=== PATIENT | female | born 1950 | race Caucasian/White ===

== ENCOUNTER → 2019-03-02 | Outpatient (CLI) | payer MEDICARE, OTHER | LOC: M.MRI 14:07 | DX: S83.241A Other tear of medial meniscus, current injury, right knee, initial encounter (principal); M17.11 Unilateral primary osteoarthritis, right knee; M25.461 Effusion, right knee; M25.761 Osteophyte, right knee; X58.XXXA Exposure to other specified factors, initial encounter; Y93.89 Activity, other specified; Y92.89 Other specified places as the place of occurrence of the external cause; Y99.8 Other external cause status ==

== ENCOUNTER 2019-04-03 06:56 | Inpatient (IN) | payer MEDICARE, OTHER ==
[~2019-04-03] VITALS: Ht 170.2 cm; Wt 73.9 kg
--- NOTE | ~2019-04-03 | OP ---
[facility] [address] [place] [address] OPERATIVE REPORT Name: WILLIAM VILLALPANDO Room: [address] IN M.R.#: [id number] Admission: 04/03/19 Attend Phys: Isauro Victoria Discharge: Date of : 48 Report #: [id number] THIS REPORT FOR: //name// CC: Arash Panda DATE OF SERVICE: 04/03/2019 PREOPERATIVE DIAGNOSIS: Right knee osteoarthritis. POSTOPERATIVE DIAGNOSIS: Right knee osteoarthritis. PROCEDURE: Right total knee arthroplasty. SURGEON: Arash Lackey II, DO AMMUNITION SUPERVISOR: IAN Dunham ANESTHESIA: General endotracheal. ESTIMATED BLOOD LOSS: 50 mL. ANTIBIOTICS: Ancef preoperatively. DRAINS: Medium Hemovac. COMPLICATIONS: None. CONDITION: The patient is stable to recovery room. IMPLANTS: Listed in the operative record and progress note. BRIEF HISTORY: The patient was seen in the preoperative area. Preoperative H and P was performed. Site was marked, questions were answered. Risks and benefits were discussed with the patient in detail about surgery. The patient wished to proceed assuming all risks. OPERATIVE PROCEDURE: The patient was taken to the operative suite and placed supine on the operating table and given appropriate anesthesia. A well-padded tourniquet was applied to the upper thigh, which was inflated to 300 mmHg after gravity exsanguination. The operative knee was sterilely prepped and draped. Surgery began by midline incision. This was carried down to the subcutaneous tissues. A medial parapatellar arthrotomy was performed and carried down to the bone. The patella was everted and excess soft tissues were removed from around the femur. Femoral cutting block was then applied, checked with a drop eleanor for [address] [address] OPERATIVE REPORT Name: WILLIAM VILLALPANDO Room: [address] IN [facility]#: [id number] Admission: 04/03/19 Attend Phys: Isauro Victoria Discharge: Date of : 48 Report #: [id number] rotational alignment, pinned in appropriate position and appropriate cuts were made. A 4-in-1 cutting block was then applied, checked for rotational alignment, pinned into appropriate position and appropriate cuts were made. The tibia was then exposed. Excess meniscus was removed. Retractor was placed along the collateral ligaments. The tibial cutting block was then applied in the appropriate position, checked with a drop eleanor for rotational alignment and slope and appropriate cut was made. The tibial bone was removed. Tibial base plate was then applied, checked for rotational alignment with the drop eleanor and pinned into appropriate position. The femur was then applied and box cut was reamed. This was then trialed with the appropriate spacer, which showed excellent fit and fill and excellent stability of the knee throughout all range of motion. The patella was reamed in appropriate fashion and sized to appropriate size. Three peg holes were drilled and it was then trialed and showed excellent flexion and extension and excellent tracking of the patella from the groove. These trials were then removed. The tibia was punched in appropriate fashion. Bone ends were cleaned with Pulsavac irrigation. Cement was mixed and applied to the final implants. These were then malleted into position and held the knee in extension and compressed to allow cement to cure. After it cured, excess cement was removed using a [place] and osteotome. The wound was then copiously irrigated and the final spacer was malleted into position. Tourniquet was deflated. Hemostasis was obtained with electrocautery. Pain cocktail was injected. PRP gel was sprayed throughout the internal aspects of the knee. Medium Hemovac drain was applied. Capsule was closed with 2 FiberWire and 1 Vicryl in a [id number] fashion. Skin was closed with 2-0 Vicryl and running 3-0 Monocryl. Dermabond and sterile dressing were applied. Xavier wrap and PolarCare were applied. The patient was transported to the recovery room in stable condition. Counts were correct throughout the procedure. By: [id number] Elizabeth Lackey II, DO /nt
[~2019-04-03 06:56] MED LIST: ASPIR 8181 M1 PO; BIOTIN5 MG PO; CALCITRATE200 MG PO; GLUCOSAMINE-CH1 EAC3 PO; MULTIVITAMINS1 EAC7 PO; OMEPRAZOLE 20 M20 M1 PO; PROBIOTIC1 EAC1 PO; SERTRALINE HCL50 MG PO; TOPROL XL25 MG PO; VITAMIN D2000 UNIT PO; XALATAN2.5 ML OPHTHALMIC
[2019-04-03 09:21] VITALS: BP 141/48
[2019-04-03 15:55] VITALS: BP 122/72
--- NOTE | 2019-04-03 17:01 | NUR ---
PT REMAINED ALERT AND ORIENTED. PT GIVEN PAIN MEDS ORDERED. PT HAS NOT YET VOIDED AT THIS TIME. PT HAS HX OF VASOVAGAL AND WILL NEED X2 ASSIST TO COMMODE. FALL RISK PRECAUTIONS IN PLACE. HOURLY ROUNDING COMPLETED. WILL CONTINUE TO MONITOR.
[2019-04-03 20:00] VITALS: BP 122/69
[2019-04-04] VITALS: BP 117/49
[2019-04-04 03:52] VITALS: BP 99/47
[2019-04-04 04:12] LABS: HEMATOCRIT 35.3 % (37.0-47.0)
[2019-04-04 04:34] LABS: CALCIUM 8.5 mg/dL (8.5-10.1); CREATININE 0.7 mg/dL (0.6-1.3); MAGNESIUM 1.7 mg/dL (1.8-2.4); POTASSIUM 4.2 mmol/L (3.5-5.1)
--- NOTE | 2019-04-04 05:52 | NUR ---
PT REMAINED ALERT AND ORIENTED. VITALS, SpO2 STABLE. PT ON 2L OF OXYGEN BY NC. IV ANTIBIOTICS GIVEN ORDERED. PAIN CONTROLLED WITH OXY IR. RT KNEE INCISION/DRESSING CLEAN AND DRY. HEMO VAC IN PLACE WITH SEROSANGUINEOUS DRAINAGE. PT UP TO THE BEDSIDE COMODE WITH WALKER AND GAIT BELT. HOURLY ROUNDING COMPLETED. WILL CONTINUE TO MONITOR.
--- NOTE | 2019-04-04 06:30 | NUR ---
HEMOVAC DRAIN DISCONTINUED PER ORDER.
[2019-04-04 07:40] VITALS: BP 102/50
--- NOTE | 2019-04-04 07:52 | NUR ---
EMESIS EARLY AM AFTER BEING UP TO BEDSIDE COMMODE. DARRELL PEACE.
--- NOTE | 2019-04-04 12:51 | NUR ---
RECIEVED O.T. EVAL AND TX ORDERS. WILL DEFER TO P.T. AT THIS TIME. PLEASE ORDER FURTHER O.T. SERVICES IF NEEDED.
--- NOTE | 2019-04-04 14:45 | NUR ---
PT.IN CPM. SHAKING. SHE SAID HER KNEE HURTS SO BAD. RN SAID TOO EARLY FOR ANY OTHER PAIN MED. TOLD HER IF SHE COULD NOT TOLERATE CPM,NURSING COULD TAKE HER OUT OF IT. SHE SAID SHE WOULD TRY IT A LITTLE LONGER. ENCOURAGED DEEP BREAHTING. SHE SAID SHE LIVES WITH HER AND IS USUALLY INDEPENDENT. HE WILL BE WITH HER AT HOME. SHE ALSO HAS 3 DAUGHTERS. THEY WILL BE TAKING TURNS STAYING WITH HER. THE DAUGHTER THATS THE RN WILL BE STAYING TOMORROW NIGHT AND TUESDAY. SHE HAS A FRONT WHEEL WALKER IN ROOM FROM HOME. DISCUSSED CPM AND POLAR JESUS. CM CALLED IN PRESCRIPTION FOR XARELTO, WRITTEN, TO HER PHARMACY. WILL CHECK IN AM FOR COPAY. SHE CHOSE [facility] . FAXED REFERRAL TO [facility] . [employer] [phone]/ FAX [phone].
[2019-04-04 16:40] VITALS: BP 102/50
--- NOTE | 2019-04-04 17:04 | NUR ---
ASSUMED CARE OF PATIENT AT APPROX 0730. ASSESSMENT COMPLETED AND CHARTED. VSS ON ROOM AIR. PAIN HAS BEEN MANAGED WITH OXY IR, HYDROCODONE, AND IV TORADOL. PATIENT HAS HAD COMPLAINTS OF NAUSEA, MANAGED WITH IV ZOFRAN AND PROMETHAZINE. PATIENT FEELING DIZZY AND SHAKY TODAY, LIKELY RELATED TO NAUSEA AND PAIN CONTROL ISSUES. PATIENT RESTING IN BED AT THIS TIME. UP WITH THERAPIES TODAY AND PROGRESSED TOWARD GOALS. FALL PRECAUTIONS IN PLACE. CALL LIGHT WITHIN REACH. HOURLY ROUNDS COMPLETED. NURSING WILL CONTINUE TO MONITOR.
[2019-04-04 21:20] VITALS: BP 103/60
[2019-04-05 04:10] VITALS: BP 131/57
[2019-04-05 04:39] LABS: HEMATOCRIT 35.6 % (37.0-47.0); HEMOGLOBIN 11.9 gm/dL (12.0-15.0); MCH 30.1 pg (26.0-34.0); MCHC 33.5 g/dL (28.0-37.0); MCV 89.8 fL (80.0-100.0); MPV 8.8 fl. (7.2-11.1); RBC 3.97 mil/uL (4.20-5.00); RDW-CV 13.3 % (10.5-14.5); WBC 9.6 thou/uL (4.0-11.0)
--- NOTE | 2019-04-05 04:39 | NUR ---
PT REMAINED ALERT, ORIENTED. SpO2 WAS 85% RA AT 2120, O2 APPLIED BY NC 2L/MIN, 97% ON RECHECK. PAIN CONTROLLED WITH TORADOL AND OXY IR. UP TO THE BATHROOM WITH MINIMUM ASSIST WITH WALKET AND GAIT BELT. PT STATED NAUSEA AFTER USING THE BATHROOM THIS MORNING. RESOLVED WHEN SHE RETURN TO BED WITHOUT FURTHER INTERVENTION. WILL CONTINUE TO MONITOR.
[2019-04-05 04:52] LABS: CALCIUM 8.7 mg/dL (8.5-10.1); CREATININE 0.8 mg/dL (0.6-1.3); MAGNESIUM 2.3 mg/dL (1.8-2.4); POTASSIUM 3.9 mmol/L (3.5-5.1)
[2019-04-05 07:40] VITALS: BP 107/60
[2019-04-05] MEDS ORDERED: PERCOCET PO (09:15)
[2019-04-05] MEDS ORDERED: XARELTO10 MG PO (09:15)
--- NOTE | 2019-04-05 10:00 | NUR ---
COPAY FOR ZAHIDA IS $190. PT.SAID SHE CANNOT AFFORD THIS. COUPON WE HAVE IS NOT FOR MEDICARE PART D. PTS. NURSING INFORMED. SHE WILL CALL . FAXED DISCHARGE ORDERS TO [facility]. THEY WILL CALL HER TOMORROW TO SET UP APPTS.
[2019-04-05] MEDS ORDERED: ASPIRIN325 PO (10:30)
--- NOTE | 2019-04-05 15:11 | NUR ---
ASSUMED CARE OF PATIENT AT APPROX 0730. ALERT AND ORIENTED X4. ASSESSMENT COMPLETED AND CHARTED. VSS ON ROOM AIR. PAIN MANAGED WITH TORADOL AND OXY IR. NO COMPLAINTS OF NAUSEA TODAY. PATIENT WORKED WELL WITH THERAPIES AND PROGRESSED TOWARD GOALS. PATIENT DISCHARGED AT 1442 WITH ALL PERSONAL BELONGINGS, PRESCRIPTIONS AND DISCHARGE INFORMATION.
== END 2019-04-05 14:42 | disposition home health service (06) | DRG 470 ==
LOC: M.PRE 06:56 → M.TBA 08:34 → M.ORTHSURG 08:34 → M.PRE 13:17 → M.ORTHSURG 15:14
PROVIDERS: Internal Medicine; Orthopaedic Surgery; ADMIT Internal Medicine
PROC: 0SRC069 Replacement of Right Knee Joint with Oxidized Zirconium on Polyethylene Synthetic Substitute, Cemented, Open Approach (ICD-10-PCS; principal; 2019-04-03)
DX: M17.11 Unilateral primary osteoarthritis, right knee (principal); I10 Essential (primary) hypertension; K21.9 Gastro-esophageal reflux disease without esophagitis; F32.9 Major depressive disorder, single episode, unspecified; H40.9 Unspecified glaucoma; Z90.710 Acquired absence of both cervix and uterus; Z79.82 Long term (current) use of aspirin; Z79.899 Other long term (current) drug therapy